=== PATIENT | female | born 1980 | race Two or more races ===

== ENCOUNTER 2018-12-24 14:56 | Emergency (ER) | payer MEDICAID ==
[~2018-12-24] VITALS: Ht 165.1 cm; Wt 77.1 kg
--- NOTE | 2018-12-24 14:56 | NUR ---
BIB SELF W C/O LOWER ABDOMINAL PAIN X 2 DAYS AND NAUSEA. TO ER BED 1, HOOKED TO MONITOR, CHANGED TO GOWN, PROVIDED W WARM BLANKET, AWAITING MD FOUNTAIN.
--- NOTE | 2018-12-24 15:16 | NUR ---
DR MOREIRA AT BEDSIDE
[2018-12-24] MEDS ORDERED: ONDANSETRON HCL/PF 4 MG/2 ML VIAL ONE (15:27)
[2018-12-24] MEDS ORDERED: ONDANSETRON HCL/PF 4 MG/2 ML VIAL IVP ONE (15:30)
[2018-12-24] MEDS ORDERED: IV NS 0.9% 500 ML BAG IV ONE (15:30)
--- NOTE | 2018-12-24 15:30 | NUR ---
PT IV LINE ESTABLISHED, LABS DRAWNED AND SENT TO LAB.
--- NOTE | 2018-12-24 15:32 | NUR ---
PLACED IN ER [address] MOREIRA, ORDERS CARRIED OUT.
[2018-12-24 15:35] LABS: BASOPHILS % (AUTO) 0.5 % (0.0-2.0); EOSINOPHILS % (AUTO) 2.5 % (0.0-6.0); HEMATOCRIT 38 % (33-45); LYMPHOCYTES # (AUTO) 2.5 /CMM (0.8-4.8); LYMPHOCYTES % (AUTO) 34.2 % (20.0-44.0); MEAN CORPUSCULAR HGB CONC 34 g/dl (31.0-36.0); MEAN CORPUSCULAR VOLUME 92 fL (82-100); MONOCYTES # (AUTO) 0.4 /CMM (0.1-1.30); MONOCYTES % (AUTO) 5.7 % (2.0-12.0); NEUTROPHILS # (AUTO) 4.2 /CMM (1.8-8.9); NEUTROPHILS % (AUTO) 57.1 % (43.0-81.0); PLATELET COUNT (AUTO) 220 /CMM (150-450); RED BLOOD CELL COUNT(AUTO) 4.15 MIL/uL (4.0-5.2); WHITE BLOOD COUNT (AUTO) 7.4 K/uL (4.3-11.0)
[2018-12-24 15:43] LABS: CALCIUM, SERUM 9.1 mg/dL (8.5-10.1); CREATININE 0.7 mg/dL (0.6-1.3); POTASSIUM 3.5 mmol/L (3.5-5.1)
[2018-12-24 15:49] LABS: ALBUMIN 3.9 g/dL (3.4-5.0); BILIRUBIN,DIRECT 0.1 mg/dL (0.0-0.2); BILIRUBIN,TOTAL 0.2 mg/dL (0.2-1.0); TOTAL PROTEIN, SERUM 7.4 g/dL (6.4-8.2)
--- NOTE | 2018-12-24 15:56 | NUR ---
PT PLACE ON BED 6. AWAITING MD FOUNTAIN. Addendum: 12/24/18 at 1557 by MOUNIKA PREVEIOUS NOTE WAS AN ERROR REGVARDING PT BERTHA PLACED ON BED 6. AWAITING MD FOUNTAIN
--- NOTE | 2018-12-24 16:00 | NUR ---
US TECH AT BEDSIDE
[2018-12-24 16:01] LABS: BILIRUBIN,URINE Negative (NEGATIVE); BLOOD, URINE Trace-intact Ery/uL (NEGATIVE); KETONES,URINE Negative (NEGATIVE); LEUKOCYTE ESTERASE ,URINE Negative (NEGATIVE); NITRITE, URINE Negative (NEGATIVE); PROTEIN,URINE Negative (NEGATIVE); UGLUCOSE Negative (NEGATIVE); UROBILINOGEN,URINE 0.2 EU/dL (0.2)
[2018-12-24 16:03] LABS: APPEARANCE,URINE SLIGHTLY HAZY (CLEAR); COLOR,URINE Light yellow (YELLOW)
[2018-12-24 16:18] LABS: BACTERIA,URINE None seen /HPF (None Seen); SQUAMOUS EPITHELIAL CELL,UR Few /HPF (None Seen); WBC,URINE 0-2 /HPF (0-3)
[2018-12-24 16:42] VITALS: BP 109/75
== END 2018-12-24 17:47 | disposition home or self-care (01) ==
LOC: ER 14:57
DX: K59.00 Constipation, unspecified (principal)
CPT/HCPCS: 36415; 74176; 76856; 80048; 80076; 81001; 83690; 84703; 85025; 96372; 99284; J2405; J7040; 81000-TC

== ENCOUNTER 2019-05-25 18:20 | Emergency (ER) | payer SELFPAY ==
[2019-05-25] MEDS ORDERED: ONDANSETRON HCL/PF 4 MG/2 ML VIAL ONE (18:36)
[2019-05-25] MEDS ORDERED: KETOROLAC TROMETHAMINE 15 MG/ML VIAL ONE (18:36)
[2019-05-25] MEDS ORDERED: MORPHINE SULFATE INJ 4 MG/ML DISP.SYRIN ONE (18:37)
[2019-05-25] MEDS ORDERED: KETOROLAC TROMETHAMINE INJ 30 MG/ML VIAL IV ONE (19:00)
[2019-05-25] MEDS ORDERED: MORPHINE SULFATE INJ 2 MG/ML DISP.SYRIN IV ONE (19:00)
[2019-05-25] MEDS ORDERED: ONDANSETRON HCL/PF 4 MG/2 ML VIAL IVP ONE (19:00)
[2019-05-25] MEDS ORDERED: IV NS 0.9% 1,000 ML BAG IV ONE (19:00)
== END 2019-05-25 20:08 | disposition home or self-care (01) ==
DX: K80.50 Calculus of bile duct without cholangitis or cholecystitis without obstruction (principal); R11.2 Nausea with vomiting, unspecified; Z98.890 Other specified postprocedural states
CPT/HCPCS: 36415; 76705; 80048; 80076; 81001; 83690; 84703; 85025; 87086; 96361; 96374; 96375; 99284; J1885; J2270; J2405; J7030

== ENCOUNTER 2021-04-15 17:40 | Emergency (ER) | payer MEDICAID ==
[~2021-04-15] VITALS: Ht 167.6 cm; Wt 74.8 kg
[2021-04-15] MEDS ORDERED: KETOROLAC TROMETHAMINE INJ 30 MG/ML VIAL IV ONE (18:30)
[2021-04-15] MEDS ORDERED: IV NS 0.9% 1,000 ML BAG IV ONE (18:30)
[2021-04-15] MEDS ORDERED: ONDANSETRON HCL/PF 4 MG/2 ML VIAL IVP ONE (18:30)
[2021-04-15] MEDS ORDERED: MORPHINE SULFATE INJ 2 MG/ML DISP.SYRIN IV ONE (18:30)
[2021-04-15] MEDS ORDERED: PANTOPRAZOLE 40 MG VIAL IV ONE (18:30)
[2021-04-15] MEDS ORDERED: PANTOPRAZOLE 40 MG VIAL ONE (18:35)
[2021-04-15] MEDS ORDERED: KETOROLAC TROMETHAMINE 15 MG/ML VIAL ONE (18:35)
[2021-04-15] MEDS ORDERED: ONDANSETRON HCL/PF 4 MG/2 ML VIAL ONE (18:35)
[2021-04-15] MEDS ORDERED: MORPHINE SULFATE INJ 4 MG/ML DISP.SYRIN ONE (18:36)
[2021-04-15 18:40] LABS: BASOPHILS % (AUTO) 0.4 % (0.0-2.0); EOSINOPHILS % (AUTO) 1.4 % (0.0-6.0); HEMATOCRIT 38 % (33-45); LYMPHOCYTES # (AUTO) 2.1 K/uL (0.8-4.8); LYMPHOCYTES % (AUTO) 18.7 % (20.0-44.0); MEAN CORPUSCULAR HGB CONC 34 g/dl (31.0-36.0); MEAN CORPUSCULAR VOLUME 92 fL (82-100); MONOCYTES # (AUTO) 0.8 K/uL (0.1-1.30); MONOCYTES % (AUTO) 7.1 % (2.0-12.0); NEUTROPHILS # (AUTO) 8.1 K/uL (1.8-8.9); NEUTROPHILS % (AUTO) 72.4 % (43.0-81.0); PLATELET COUNT (AUTO) 214 K/uL (150-450); RED BLOOD CELL COUNT(AUTO) 4.18 MIL/uL (4.0-5.2); WHITE BLOOD COUNT (AUTO) 11.3 K/uL (4.3-11.0)
[2021-04-15 18:43] LABS: BILIRUBIN,URINE Negative (NEGATIVE); COLOR,URINE YELLOW (YELLOW); LEUKOCYTE ESTERASE ,URINE Negative (NEGATIVE); NITRITE, URINE Negative (NEGATIVE); PH,URINE 5.5 (5.0-8.0); PROTEIN,URINE Negative (NEGATIVE); UGLUCOSE Negative (NEGATIVE)
[2021-04-15 18:54] LABS: BACTERIA,URINE Few /HPF (None Seen); MUCUS,URINE Few /LPF (None Seen); SQUAMOUS EPITHELIAL CELL,UR Few /HPF (None Seen)
[2021-04-15 18:56] LABS: WBC,URINE 0-2 /HPF (0-3)
[2021-04-15 19:01] LABS: CALCIUM, SERUM 8.8 mg/dL (8.5-10.1); CREATININE 1.1 mg/dL (0.6-1.3); POTASSIUM 3.4 mmol/L (3.5-5.1)
--- NOTE | 2021-04-15 19:05 | NUR ---
rec'd report from phyllis castellanos for jesse
[2021-04-15 19:10] LABS: ALBUMIN 3.7 g/dL (3.4-5.0); BILIRUBIN,DIRECT 0.1 mg/dL (0.0-0.2); BILIRUBIN,TOTAL 0.4 mg/dL (0.2-1.0); TOTAL PROTEIN, SERUM 7.3 g/dL (6.4-8.2)
--- NOTE | 2021-04-15 19:13 | NUR ---
patient came in to the er c/o "Mid abdominal/epigastric pain started 7am NOT going away +n/v". On room air, connected to the monitor and pulse ox. kept comfortable, will continue to monitor accordingly.
--- NOTE | 2021-04-15 19:17 | NUR ---
report given to Toya SOSA next shift for jesse.
[2021-04-15] MEDS ORDERED: HYDR-3972 PO (19:30)
--- NOTE | 2021-04-15 20:21 | NUR ---
Patient discharged to home in stable condition. Written and verbal after care instructions given. Patient verbalizes understanding of instruction. IV removed. Catheter intact and site benign. Pressure and 4x4 applied to site. No bleeding noted.Pt ambulatory with a steady gait. Awaiting family pickup
[2021-04-15 20:29] VITALS: BP 110/69
== END 2021-04-15 20:21 | disposition home or self-care (01) ==
LOC: ER 17:44
DX: K80.50 Calculus of bile duct without cholangitis or cholecystitis without obstruction (principal); R11.2 Nausea with vomiting, unspecified; Z98.890 Other specified postprocedural states
CPT/HCPCS: 36415; 76700; 80048; 80076; 81001; 83690; 84703; 85025; 87086; 96361; 96374; 96375; 99284; C9113; J1885; J2270; J2405; J7030

== ENCOUNTER 2022-04-14 04:37 | Emergency (ER) | payer MEDICAID ==
[~2022-04-14] VITALS: Ht 160 cm; Wt 72.6 kg
[~2022-04-14 04:37] MED LIST: HYDR-3972 PO
--- NOTE | 2022-04-14 04:47 | NUR ---
BIBS C/O RUQ ABDOMINAL PAIN WITH HX OF GALLSTONES [id number]. PATIENT ALERT AND ORIENTED X3. AMBULATORY WITH NON LABORED BREATHING IN BED 2 AWAITING MD FOUNTAIN.
--- NOTE | 2022-04-14 04:47 | NUR ---
URINE COLLECTED AND SENT TO LAB
[2022-04-14] MEDS ORDERED: ONDANSETRON HCL/PF 4 MG/2 ML VIAL ONE (04:51)
[2022-04-14] MEDS ORDERED: MORPHINE SULFATE INJ 4 MG/ML DISP.SYRIN ONE (04:52)
[2022-04-14] MEDS ORDERED: ONDANSETRON HCL/PF 4 MG/2 ML VIAL IVP ONE (05:00)
[2022-04-14] MEDS ORDERED: MORPHINE SULFATE INJ 2 MG/ML DISP.SYRIN IV ONE (05:00)
--- NOTE | 2022-04-14 05:00 | NUR ---
IV CANNULA G18 INSERTED ON RIGHT AC G18. BLOOD DRAWN AND SENT TO LAB
[2022-04-14 05:33] LABS: BASOPHILS % (AUTO) 0.6 % (0.0-2.0); EOSINOPHILS % (AUTO) 3.1 % (0.0-6.0); HEMATOCRIT 39 % (33-45); LYMPHOCYTES # (AUTO) 2.7 K/uL (0.8-4.8); LYMPHOCYTES % (AUTO) 33.9 % (20.0-44.0); MEAN CORPUSCULAR HGB CONC 34 g/dl (31.0-36.0); MEAN CORPUSCULAR VOLUME 91 fL (82-100); MONOCYTES # (AUTO) 0.5 K/uL (0.1-1.30); MONOCYTES % (AUTO) 6.2 % (2.0-12.0); NEUTROPHILS # (AUTO) 4.6 K/uL (1.8-8.9); NEUTROPHILS % (AUTO) 56.2 % (43.0-81.0); PLATELET COUNT (AUTO) 230 K/uL (150-450); RED BLOOD CELL COUNT(AUTO) 4.26 MIL/uL (4.0-5.2); WHITE BLOOD COUNT (AUTO) 8.1 K/uL (4.3-11.0)
[2022-04-14 05:46] LABS: CALCIUM, SERUM 8.8 mg/dL (8.5-10.1); CREATININE 0.8 mg/dL (0.6-1.3); POTASSIUM 3.4 mmol/L (3.5-5.1)
[2022-04-14] MEDS ORDERED: IBUP-1955 PO (05:50)
[2022-04-14] MEDS ORDERED: TRAM50TA2 PO (05:50)
[2022-04-14 06:01] LABS: ALBUMIN 3.6 g/dL (3.4-5.0); BILIRUBIN,TOTAL 0.3 mg/dL (0.2-1.0); TOTAL PROTEIN, SERUM 7.3 g/dL (6.4-8.2)
--- NOTE | 2022-04-14 06:35 | NUR ---
Patient discharged to home in stable condition. Written and verbal after care instructions given. Patient verbalizes understanding of instruction.
--- NOTE | 2022-04-14 06:35 | NUR ---
IV CANNULA REMOVED
[2022-04-14 06:36] VITALS: BP 133/75
== END 2022-04-14 06:37 | disposition home or self-care (01) ==
LOC: ER 04:45
DX: K80.70 Calculus of gallbladder and bile duct without cholecystitis without obstruction (principal); Z87.42 Personal history of other diseases of the female genital tract; Z79.899 Other long term (current) drug therapy
CPT/HCPCS: 99284; 96374; 76705; 96375; 85025; 80048; 83690; 80076; 36415; J2270; J2405

== ENCOUNTER 2022-05-04 09:01 | Emergency (ER) | payer MEDICAID ==
[~2022-05-04] VITALS: Ht 160 cm; Wt 77.1 kg
[~2022-05-04 09:01] MED LIST changes: +IBUP-1955 PO; +TRAM50TA2 PO
--- NOTE | 2022-05-04 09:11 | NUR ---
BIBS L BREAST PAIN SINCE YESTERDAY WORST TODAY, PAIN 8/10 ON PAIN SCALE. VITALS ARE WITHIN NORMAL LIMITS. NO RESP DISTRESS NOTED.
--- NOTE | 2022-05-04 09:28 | NUR ---
DR LEWIS AT BEDSIDE FOR ULTRASOUND ACCOMPANIED BY FEMALE RN.
[2022-05-04] MEDS ORDERED: ONDA4TAB5 PO (10:20)
[2022-05-04] MEDS ORDERED: DOXY100C2 PO (10:20)
--- NOTE | 2022-05-04 10:26 | NUR ---
Patient discharged to home in stable condition. Written and verbal after care instructions given. Patient verbalizes understanding of instruction.
[2022-05-04 10:27] VITALS: BP 115/80
== END 2022-05-04 10:27 | disposition home or self-care (01) ==
LOC: ER 09:05
DX: N61.0 Mastitis without abscess (principal); Z79.899 Other long term (current) drug therapy

== ENCOUNTER 2022-05-20 09:34 | Emergency (ER) | payer MEDICAID ==
[~2022-05-20] VITALS: Ht 154.9 cm; Wt 74.8 kg
[~2022-05-20 09:34] MED LIST changes: +DOXY100C2 PO; +ONDA4TAB5 PO
--- NOTE | 2022-05-20 09:35 | NUR ---
RECEIVED PT 41 YRS FEMAL WALKIN IN FROM HOME C/O CHEST PAIN 2 WEEKS AGO AND RESLOVING AFTER TX AND GOTING WORSE LAST 3 DAYS DINESES SOBOR AND HX TRAUMA
--- NOTE | 2022-05-20 09:45 | NUR ---
SEEN BY DR. VERA WITH [facility]
--- NOTE | 2022-05-20 10:11 | NUR ---
UA SENT TO LAB
[2022-05-20] MEDS ORDERED: ASPIRIN 325 MG TABLET ONE (10:13)
--- NOTE | 2022-05-20 10:18 | NUR ---
EKG DONE AT BED SIDE
--- NOTE | 2022-05-20 10:20 | NUR ---
CXRAY DONE AT BED PT ON HERE PERIOD
--- NOTE | 2022-05-20 10:25 | NUR ---
INSERTED ANGO CATHETER G18 On rt ac blood drow and sent to lab
[2022-05-20] MEDS ORDERED: ASPIRIN 325 MG TABLET PO ONE (10:30)
[2022-05-20 10:44] LABS: BASOPHILS % (AUTO) 0.6 % (0.0-2.0); EOSINOPHILS % (AUTO) 2.2 % (0.0-6.0); HEMATOCRIT 37 % (33-45); HEMOGLOBIN 12.4 g/dL (11.5-14.8); LYMPHOCYTES % (AUTO) 26.9 % (20.0-44.0); MEAN CORPUSCULAR HGB CONC 34 g/dl (31.0-36.0); MEAN CORPUSCULAR VOLUME 89 fL (82-100); MONOCYTES # (AUTO) 0.5 K/uL (0.1-1.30); MONOCYTES % (AUTO) 6.7 % (2.0-12.0); NEUTROPHILS # (AUTO) 4.7 K/uL (1.8-8.9); NEUTROPHILS % (AUTO) 63.6 % (43.0-81.0); PLATELET COUNT (AUTO) 231 K/uL (150-450); WHITE BLOOD COUNT (AUTO) 7.4 K/uL (4.3-11.0)
--- NOTE | 2022-05-20 11:00 | NUR ---
BOTH BREAST EXAMIN DONE WITH FEMALE NURSE AT BED SIDE
[2022-05-20 11:13] LABS: ALANINE AMINOTRANSFERASE 20 U/L (12-78); ALBUMIN 3.4 g/dL (3.4-5.0); ALKALINE PHOSPHATASE 72 U/L (46-116); ASPARTATE AMINOTRANSFERASE 11 U/L (15-37); BILIRUBIN,DIRECT 0.1 mg/dL (0.0-0.2); BILIRUBIN,TOTAL 0.5 mg/dL (0.2-1.0); CALCIUM, SERUM 8.4 mg/dL (8.5-10.1); CARBON DIOXIDE 30 mmol/L (21-32); CHLORIDE 105 mmol/L (98-107); CREATININE 0.8 mg/dL (0.6-1.3); GLUCOSE 95 mg/dL (74-106); POTASSIUM 3.6 mmol/L (3.5-5.1); SODIUM SERUM 139 mmol/L (136-145); TOTAL PROTEIN, SERUM 7.1 g/dL (6.4-8.2); UREA NITROGEN, BLOOD 11 mg/dL (7-18)
--- NOTE | 2022-05-20 12:07 | NUR ---
US DONE ON RT BREAST AT BED SIDE
--- NOTE | 2022-05-20 14:19 | NUR ---
KATARINA FOR LAB RESULT
[2022-05-20] MEDS ORDERED: IBUP-1955 PO (15:07)
--- NOTE | 2022-05-20 15:57 | NUR ---
PT STABLE VS NO PAIN D/C INSTRACTION GIVEN TO PT AND FALLOW UP CARE FULLY AND VERBLIZED UNDERSTOOD D/C HOME WITH RX
[2022-05-20 16:11] VITALS: BP 124/65
== END 2022-05-20 16:11 | disposition home or self-care (01) ==
LOC: ER 09:42
DX: N64.4 Mastodynia (principal); N63.0 Unspecified lump in unspecified breast; Z98.890 Other specified postprocedural states
CPT/HCPCS: 36415; 71045-TC; 76642-LT-TC; 80048-TC; 80076-TC; 84484-TC; 84703-TC; 85025-TC

== ENCOUNTER 2023-09-14 21:05 | Emergency (ER) | payer MEDICAID ==
[2023-09-13] MEDS: MORPHINE SULFATE INJ 2 MG/ML DISP.SYRIN IV ONE (22:49)
[~2023-09-14] VITALS: Ht 157.5 cm; Wt 68.0 kg
[2023-09-14] MEDS ORDERED: KETOROLAC TROMETHAMINE 15 MG/ML VIAL IV ONE (22:30)
[2023-09-14] MEDS ORDERED: IV NS 0.9% 1,000 ML BAG IV ONE (22:30)
[2023-09-14] MEDS ORDERED: ONDANSETRON HCL/PF 4 MG/2 ML VIAL IVP ONE (22:30)
[2023-09-14] MEDS ORDERED: ONDANSETRON HCL/PF 4 MG/2 ML VIAL ONE (22:31)
[2023-09-14] MEDS ORDERED: MORPHINE SULFATE INJ 4 MG/ML DISP.SYRIN ONE (22:31)
[2023-09-14] MEDS ORDERED: KETOROLAC TROMETHAMINE 15 MG/ML VIAL ONE (22:31)
[2023-09-14] MEDS: MORPHINE SULFATE INJ 2 MG/ML DISP.SYRIN IV ONE (22:47)
[2023-09-14 22:58] LABS: BASOPHILS # (AUTO) 0.1 K/uL (0.0-0.2); BASOPHILS % (AUTO) 0.9 % (0.0-2.0); EOSINOPHILS # (AUTO) 0.3 K/uL (0.0-0.7); EOSINOPHILS % (AUTO) 3.2 % (0.0-6.0); HEMATOCRIT 41 % (33-45); HEMOGLOBIN 13.4 g/dL (11.5-14.8); LYMPHOCYTES # (AUTO) 2.3 K/uL (0.8-4.8); LYMPHOCYTES % (AUTO) 23.9 % (20.0-44.0); MEAN CORPUSCULAR HEMOGLOBIN 31 PG (26.0-33.0); MEAN CORPUSCULAR HGB CONC 33 g/dl (31.0-36.0); MEAN CORPUSCULAR VOLUME 93 fL (82-100); MONOCYTES # (AUTO) 0.7 K/uL (0.1-1.30); MONOCYTES % (AUTO) 6.7 % (2.0-12.0); NEUTROPHILS # (AUTO) 6.4 K/uL (1.8-8.9); NEUTROPHILS % (AUTO) 65.3 % (43.0-81.0); PLATELET COUNT (AUTO) 243 K/uL (150-450); RED BLOOD CELL COUNT(AUTO) 4.36 MIL/uL (4.0-5.2); RED CELL DISTRIBUTION WIDTH 13.8 % (11.5-15.0); WHITE BLOOD COUNT (AUTO) 9.8 K/uL (4.3-11.0)
[2023-09-14 23:06] LABS: CREATININE 0.8 mg/dL (0.6-1.3); POTASSIUM 3.4 mmol/L (3.5-5.1)
[2023-09-14 23:11] LABS: ALBUMIN 3.6 g/dL (3.4-5.0); BILIRUBIN,DIRECT 0.1 mg/dL (0.0-0.2); BILIRUBIN,TOTAL 0.3 mg/dL (0.2-1.0); TOTAL PROTEIN, SERUM 7.5 g/dL (6.4-8.2)
[2023-09-14] MEDS ORDERED: HYDR-4209 PO (23:39)
[2023-09-14] MEDS ORDERED: ONDA4TAB11 PO (23:39)
[2023-09-15 00:08] VITALS: BP 149/88; TEMP 98.6; O2SAT 99
== END 2023-09-15 00:09 | disposition home or self-care (01) ==
LOC: ER 21:08
DX: K80.70 Calculus of gallbladder and bile duct without cholecystitis without obstruction (principal); Z98.890 Other specified postprocedural states; Z79.899 Other long term (current) drug therapy
CPT/HCPCS: 99285; 96374; 76705; 96375; 85025; 80048; 83690; 80076; 36415; J2270; J2405; J7030; J1885

== ENCOUNTER 2024-04-01 12:29 | Emergency (ER) | payer OTHER ==
[~2024-04-01] VITALS: Ht 167.6 cm; Wt 69.9 kg
[~2024-04-01 12:29] MED LIST changes: +HYDR-4209 PO; +ONDA4TAB11 PO
[2024-04-01] MEDS ORDERED: ONDANSETRON HCL/PF 4 MG/2 ML VIAL ONE (12:52)
[2024-04-01] MEDS ORDERED: MORPHINE SULFATE INJ 2 MG/ML DISP.SYRIN ONE (12:53)
[2024-04-01] MEDS: IV NS 0.9% 1,000 ML BAG IV ONE (13:00)
[2024-04-01] MEDS: MORPHINE SULFATE INJ 2 MG/ML DISP.SYRIN IV ONE (13:01)
[2024-04-01] MEDS: ONDANSETRON HCL/PF 4 MG/2 ML VIAL IVP ONE (13:01)
[2024-04-01 13:03] LABS: BASOPHILS % (AUTO) 0.2 % (0.0-2.0); EOSINOPHILS # (AUTO) 0.4 K/uL (0.0-0.7); EOSINOPHILS % (AUTO) 3.8 % (0.0-6.0); HEMATOCRIT 41 % (33-45); HEMOGLOBIN 14.2 g/dL (11.5-14.8); LYMPHOCYTES # (AUTO) 3.6 K/uL (0.8-4.8); LYMPHOCYTES % (AUTO) 33.7 % (20.0-44.0); MEAN CORPUSCULAR HEMOGLOBIN 31 PG (26.0-33.0); MEAN CORPUSCULAR HGB CONC 35 g/dl (31.0-36.0); MEAN CORPUSCULAR VOLUME 90 fL (82-100); MONOCYTES # (AUTO) 0.6 K/uL (0.1-1.30); MONOCYTES % (AUTO) 5.4 % (2.0-12.0); NEUTROPHILS % (AUTO) 56.9 % (43.0-81.0); PLATELET COUNT (AUTO) 266 K/uL (150-450); RED BLOOD CELL COUNT(AUTO) 4.58 MIL/uL (4.0-5.2); RED CELL DISTRIBUTION WIDTH 13.7 % (11.5-15.0); WHITE BLOOD COUNT (AUTO) 10.6 K/uL (4.3-11.0)
[2024-04-01 13:10] LABS: CALCIUM, SERUM 10.1 mg/dL (8.5-10.1); CREATININE 0.7 mg/dL (0.6-1.3); POTASSIUM 3.6 mmol/L (3.5-5.1)
[2024-04-01 13:16] LABS: ALBUMIN 3.7 g/dL (3.4-5.0); BILIRUBIN,DIRECT 0.3 mg/dL (0.0-0.2); BILIRUBIN,TOTAL 0.9 mg/dL (0.2-1.0); TOTAL PROTEIN, SERUM 7.8 g/dL (6.4-8.2)
[2024-04-01] MEDS: PIPERACILLIN /TAZOBACTAM 3.375 G in IV D5W 50 ML IV ONE (13:19)
[2024-04-01] MEDS ORDERED: AMOX-430 PO (14:05)
[2024-04-01] MEDS ORDERED: NAPR-1164 PO (14:05)
[2024-04-01 14:10] VITALS: BP 123/69; TEMP 98.1; O2SAT 100
== END 2024-04-01 14:12 | disposition left against medical advice (07) ==
LOC: ER 12:34
DX: K81.0 Acute cholecystitis (principal); Z79.899 Other long term (current) drug therapy; Z79.1 Long term (current) use of non-steroidal anti-inflammatories (NSAID); Z60.2 Problems related to living alone
CPT/HCPCS: 99285; 96365; 76705; 96375; 85025; 80048; 83690; 80076; 36415; J2405; J2543; J7060; J7030 ×2; J2270

== ENCOUNTER 2024-06-20 01:28 | Emergency (ER) | payer OTHER ==
[~2024-06-20] VITALS: Ht 162.6 cm; Wt 72.6 kg
[~2024-06-20 01:28] MED LIST changes: +AMOX-430 PO; +NAPR-1164 PO
[2024-06-20] MEDS ORDERED: KETOROLAC TROMETHAMINE INJ 30 MG/ML VIAL ONE (02:32)
[2024-06-20] MEDS ORDERED: ONDANSETRON HCL/PF 4 MG/2 ML VIAL ONE (02:32)
[2024-06-20 02:43] LABS: BASOPHILS % (AUTO) 0.4 % (0.0-2.0); EOSINOPHILS # (AUTO) 0.2 K/uL (0.0-0.7); EOSINOPHILS % (AUTO) 2.8 % (0.0-6.0); HEMATOCRIT 40 % (33-45); HEMOGLOBIN 13.4 g/dL (11.5-14.8); LYMPHOCYTES # (AUTO) 2.7 K/uL (0.8-4.8); LYMPHOCYTES % (AUTO) 30.6 % (20.0-44.0); MEAN CORPUSCULAR HEMOGLOBIN 31 PG (26.0-33.0); MEAN CORPUSCULAR HGB CONC 34 g/dl (31.0-36.0); MEAN CORPUSCULAR VOLUME 93 fL (82-100); MONOCYTES # (AUTO) 0.6 K/uL (0.1-1.30); MONOCYTES % (AUTO) 6.2 % (2.0-12.0); NEUTROPHILS # (AUTO) 5.3 K/uL (1.8-8.9); PLATELET COUNT (AUTO) 216 K/uL (150-450); RED BLOOD CELL COUNT(AUTO) 4.28 MIL/uL (4.0-5.2); RED CELL DISTRIBUTION WIDTH 13.5 % (11.5-15.0); WHITE BLOOD COUNT (AUTO) 8.9 K/uL (4.3-11.0)
[2024-06-20] MEDS: KETOROLAC TROMETHAMINE INJ 30 MG/ML VIAL IV ONE (02:53)
[2024-06-20] MEDS: ONDANSETRON HCL/PF - ER 4 MG/2 ML VIAL IV ONE (02:53)
[2024-06-20 03:01] LABS: APPEARANCE,URINE CLOUDY (CLEAR); BILIRUBIN,URINE NEGATIVE (NEGATIVE); BLOOD, URINE 2+ Ery/uL (NEGATIVE); COLOR,URINE YELLOW (YELLOW); KETONES,URINE NEGATIVE (NEGATIVE); LEUKOCYTE ESTERASE ,URINE 1+ (NEGATIVE); NITRITE, URINE NEGATIVE (NEGATIVE); PROTEIN,URINE NEGATIVE (NEGATIVE); UGLUCOSE NEGATIVE (NEGATIVE)
[2024-06-20 03:01] LABS: ALBUMIN 3.6 g/dL (3.4-5.0); BILIRUBIN,TOTAL 0.3 mg/dL (0.2-1.0); CALCIUM, SERUM 8.9 mg/dL (8.5-10.1); CREATININE 0.9 mg/dL (0.6-1.3); POTASSIUM 3.5 mmol/L (3.5-5.1); TOTAL PROTEIN, SERUM 7.2 g/dL (6.4-8.2)
[2024-06-20 03:14] LABS: ADD URINE CULTURE YES; BACTERIA,URINE 2+ /HPF (None Seen); URINE AMORPHOUS URATE Many /HPF (None Seen)
[2024-06-20 03:15] LABS: PREGNANCY TEST URINE QUAL NEGATIVE (NEGATIVE)
[2024-06-20] MEDS ORDERED: NITR100C6 PO (04:24)
[2024-06-20] MEDS ORDERED: KETO10TA2 PO (04:24)
[2024-06-20 04:51] VITALS: BP 123/80; TEMP 98; O2SAT 99
== END 2024-06-20 04:51 | disposition home or self-care (01) ==
LOC: ER 01:34
DX: K80.20 Calculus of gallbladder without cholecystitis without obstruction (principal); N39.0 Urinary tract infection, site not specified; R10.2 Pelvic and perineal pain; Z79.1 Long term (current) use of non-steroidal anti-inflammatories (NSAID); Z79.891 Long term (current) use of opiate analgesic; Z79.899 Other long term (current) drug therapy; Z60.2 Problems related to living alone
CPT/HCPCS: 99285; 74176; 96374; 96375; 85025; 87086; 83690; 84703; 81001; 36415; 80053; J1885; J2405 ×2

== ENCOUNTER 2025-04-06 15:34 | Emergency (ER) | payer OTHER ==
[~2025-04-06] VITALS: Ht 165.1 cm; Wt 74.4 kg
[~2025-04-06 15:34] MED LIST changes: +KETO10TA2 PO; +NITR100C6 PO
[2025-04-06] MEDS ORDERED: LIDOCAINE 1%-EPI 1:100,000 20 ML VIAL ONE (16:04)
[2025-04-06] MEDS: LIDOCAINE 1%-EPI 1:200,000 SDV 10 ML VIAL IJ ONE (16:35)
[2025-04-06] MEDS ORDERED: ACETAMINOPHEN 325 MG TABLET ONE (16:48)
[2025-04-06] MEDS ORDERED: BACI500P4 TP (16:49)
[2025-04-06] MEDS: ACETAMINOPHEN 650 MG/20.3 ML UDC PO ONE (16:50)
[2025-04-06] MEDS ORDERED: ACET-2030 PO (16:53)
[2025-04-06 16:59] VITALS: BP 133/78; TEMP 98.5; O2SAT 97
== END 2025-04-06 17:01 | disposition home or self-care (01) ==
LOC: ER 15:36
DX: S01.112A Laceration without foreign body of left eyelid and periocular area, initial encounter (principal); Z79.1 Long term (current) use of non-steroidal anti-inflammatories (NSAID); Z79.899 Other long term (current) drug therapy; Z60.2 Problems related to living alone; W22.09XA Striking against other stationary object, initial encounter; Y93.89 Activity, other specified; Y92.89 Other specified places as the place of occurrence of the external cause; Y99.8 Other external cause status
CPT/HCPCS: 12011; 99282; A6403; J3490

== ENCOUNTER 2025-04-11 16:06 | Emergency (ER) | payer OTHER ==
[~2025-04-11] VITALS: Ht 165.1 cm; Wt 74.4 kg
[~2025-04-11 16:06] MED LIST changes: +ACET-2030 PO; +BACI500P4 TP
[2025-04-11 16:16] VITALS: BP 121/61; TEMP 98; O2SAT 97
== END 2025-04-11 17:16 | disposition home or self-care (01) ==
LOC: ER 16:13
DX: S01.112D Laceration without foreign body of left eyelid and periocular area, subsequent encounter (principal); Z79.1 Long term (current) use of non-steroidal anti-inflammatories (NSAID); Z79.899 Other long term (current) drug therapy; Z60.2 Problems related to living alone; X58.XXXD Exposure to other specified factors, subsequent encounter